=== PATIENT | female | born 1980 | race Caucasian/White ===

== ENCOUNTER 2018-06-01 06:42 | Inpatient (IN) | payer BC, SELFPAY ==
--- NOTE | 2018-06-01 05:27 | W.PM.HP.N ---
Date of service: 06/01/18 Time of Service: 05:27 Assessment and Plan (1) Previous delivery affecting : Current visit: No Status: Acute (2) Active labor at term: Current visit: Yes Status: Acute History of Present Illness Chief Complaint: Active labor at 40-2/7 weeks estimated gestational age, arrest of dilation Narrative: The patient is a 37-year old female with an estimated date of delivery of 05/30/2018 by a last menstrual period of 08/22/2017 confirmed by a 12-week OB ultrasound on 11/18/2017 who presents to the center at the request of her licensed patrol community service officer. Per report patient began experiencing contractions 0600 05/31/2017. She labored at home under the supervision of the Vasu Contreras CPM with gradual cervical changes and maximum cervical dilatation of 7 cm at 2100 hrs. Since that time she has continued with regular contractions reassuring heart rate by Doptone but no appreciable cervical change. Contractions have been strong per patient report and moderate to strong by palpation. The plan was to have her admitted to [facility] for IV fluids and further assessment. course First visit at 13.3 weeks on 11/23/2017 first trimester blood pressure 108/50 third trimester blood pressure 128/68 she had a total of 11 visits size but has been equal to dates patient's prepregnancy weight was 135 pounds. She is currently 178 pounds she was 151 pounds at her 13-week visit. She has gained approximately 27 pounds. Patient has been steadfast in her plans for a vaginal and strongly desired a vaginal at home. She visited [facility] during her and was shown the facility. She has been counseled regarding the risk of a vaginal after including the risk of uterine rupture with possible catastrophic consequences Labs A positive, antibody negative HIV, hepatitis B, RPR negative. Patient declined group B strep testing Imaging she had a normal second trimester morphology ultrasound on 12/30/2017 which confirmed her EDC by LMP OB history February 2016 she presented to [facility] at 42 weeks estimated gestational age with rupture of membranes not in active labor. She was in augmentation of labor with a maximum cervical dilatation of 5 cm. The delivery was for lack of progress. No complications in the . Past medical history is unremarkable Past surgical history: Allergies: None Medications: vitamins PE: Patient arrived at [facility] walking accompanied by her Thanh and Ms. Contreras. Heart regular rate and rhythm lungs clear to auscultation bilaterally abdomen is gravid contractions palpate strong contractions every 5-6 minutes heart rate category 1. No evidence of decelerations with contractions. Extremities 1+ pretibial nonpitting edema no clonus DTRs 2+ pelvic exam was deferred until after patient has had IV placed. Assessment: Patient is 37-year-old female currently at 40+ weeks estimated gestational age who desires with arrest of dilatation. She is tolerating contractions well. I approach the patient and her upon arrival suggesting that she had an arrest of dilatation patient and verbally indicated that she does not want a . The plan at this time is to provide IV hydration I will perform a cervical exam to assess there is pelvis. Type and screen CBC have been obtained. Review of Systems Review of Systems All systems reviewed & are unremarkable except as noted in HPI and below PFSH Medical History Previous delivery affecting (Acute) Family History Mother Hypertension Father Hypertension Social History household members: spouse and children marital status: M-Imtiaz number of children: 1 Smoking/Tobacco Use Status: Current every day Meds Allergies Allergy/AdvReac Type Severity Reaction Status Date / Time No Known Allergies Allergy Unverified 06/01/18 04:24 Exam Const General: cooperative and other Chest Breast inspection: normal inspection of the breasts Resp Effort & Inspection: normal respiratory effort Auscultation: clear to auscultation bilaterally Cardio Rate: regular rate Rhythm: regular rhythm Other: Sterile vaginal exam deferred until IV in place. heart rate category 1 no decelerations noted contractions every 5-6 minutes Skin General skin exam: no rashes or lesions noted Neuro General: deep tendon reflexes 2+ bilaterally Extrem General: normal to inspection and edema (1+ bilateral pretibial edema) Results Labs : 06/01/18 04:08
[2018-06-01 05:43] LABS: HCT 35.2 % (36.0-46.0); HGB 11.6 g/dL (12.0-15.5); Mean Corpuscular Hemoglobin 23.6 pg (27.0-33.0); Mean Corpuscular Volume 71.5 fL (80-95); Mean Platelet Volume 10.6 fL (8.0-11.0); Platelet Count 277 x1000/uL (130-400); RBC 4.92 m/cumm (4.00-5.20); RBC Distribution Width 20.1 % (11.7-14.6); White Blood Cell Count 22.32 k/cumm (4.4-10.8)
--- NOTE | 2018-06-01 05:43 | HPE_ITS ---
Date of service: 06/01/18 Time of Service: 05:27 Assessment and Plan (1) Previous delivery affecting : Current visit: No Status: Acute (2) Active labor at term: Current visit: Yes Status: Acute History of Present Illness Chief Complaint: Active labor at 40-2/7 weeks estimated gestational age, arrest of dilation Narrative: The patient is a 37-year old female with an estimated date of delivery of 05/30/2018 by a last menstrual period of 08/22/2017 confirmed by a 12-week OB ultrasound on 11/18/2017 who presents to the center at the request of her licensed apartment community manager. Per report patient began experiencing contractions 0600 05/31/2017. She labored at home under the supervision of the Vasu Contreras CPM with gradual cervical changes and maximum cervical dilatation of 7 cm at 2100 hrs. Since that time she has continued with regular contractions reassuring heart rate by Doptone but no appreciable cervical change. Contractions have been strong per patient report and moderate to strong by palpation. The plan was to have her admitted to [facility] for IV fluids and further assessment. course First visit at 13.3 weeks on 11/23/2017 first trimester blood pressure 108/50 third trimester blood pressure 128/68 she had a total of 11 visits size but has been equal to dates patient's prepregnancy weight was 135 pounds. She is currently 178 pounds she was 151 pounds at her 13-week visit. She has gained approximately 27 pounds. Patient has been steadfast in her plans for a vaginal and strongly desired a vaginal at home. She visited [facility] during her and was shown the facility. She has been counseled regarding the risk of a vaginal after including the risk of uterine rupture with possible catastrophic consequences Labs A positive, antibody negative HIV, hepatitis B, RPR negative. Patient declined group B strep testing Imaging she had a normal second trimester morphology ultrasound on 12/30/2017 which confirmed her EDC by LMP OB history February 2016 she presented to [facility] at 42 weeks estimated gestational age with rupture of membranes not in active labor. She was in augmentation of labor with a maximum cervical dilatation of 5 cm. The delivery was for lack of progress. No complications in the . Past medical history is unremarkable Past surgical history: Allergies: None Medications: vitamins PE: Patient arrived at [facility] walking accompanied by her Thanh and Ms. Contreras. Heart regular rate and rhythm lungs clear to auscultation bilaterally abdomen is gravid contractions palpate strong contractions every 5-6 minutes heart rate category 1. No evidence of decelerations with contractions. Extremities 1+ pretibial nonpitting edema no clonus DTRs 2+ pelvic exam was deferred until after patient has had IV placed. Assessment: Patient is 37-year-old female currently at 40+ weeks estimated gestational age who desires with arrest of dilatation. She is tolerating contractions well. I approach the patient and her upon arrival suggesting that she had an arrest of dilatation patient and verbally indicated that she does not want a . The plan at this time is to provide IV hydration I will perform a cervical exam to assess there is pelvis. Type and screen CBC have been obtained. Review of Systems Review of Systems All systems reviewed & are unremarkable except as noted in HPI and below PFSH Medical History Previous delivery affecting (Acute) Family History Mother Hypertension Father Hypertension Social History household members: spouse and children marital status: M-Imtiaz number of children: 1 Smoking/Tobacco Use Status: Current every day Meds Allergies Allergy/AdvReac Type Severity Reaction Status Date / Time No Known Allergies Allergy Unverified 06/01/18 04:24 Exam Const General: cooperative and other Chest Breast inspection: normal inspection of the breasts Resp Effort & Inspection: normal respiratory effort Auscultation: clear to auscultation bilaterally Cardio Rate: regular rate Rhythm: regular rhythm Other: Sterile vaginal exam deferred until IV in place. heart rate category 1 no decelerations noted contractions every 5-6 minutes Skin General skin exam: no rashes or lesions noted Neuro General: deep tendon reflexes 2+ bilaterally Extrem General: normal to inspection and edema (1+ bilateral pretibial edema) Results Labs : 06/01/18 04:08
[2018-06-01] MEDS: Sodium Citrate 30 ML CUP (06:53)
[2018-06-01] MEDS: AZITHROMYCIN 500 MG in Normal Saline 250 ML 250 MG IVPB (06:58)
[2018-06-01] MEDS: Lactated Ringers 1,000 ML 200 ML IV (07:19)
[2018-06-01] MEDS: Lactated Ringers 1,000 ML 150 ML IV (11:21)
[2018-06-01] MEDS: Ibuprofen 600 MG TAB PO (14:38)
--- NOTE | 2018-06-01 19:01 | W.PM.OP ---
Date of service: 06/01/18 Time of Service: 19:02 Operative Note DATE OF PROCEDURE: 06/01/18 PRE-OP DIAGNOSIS: IUP at 40.2 W EGA, arrest of dilation, unsuccessful . POST-OP DIAGNOSIS: same PROCEDURE: Urgent repeat low transverse delivery SURGEON: Anabel Canales SEWER AND DRAIN TECHNICIAN: Wade Lawson ANESTHESIA: spinal ESTIMATED BLOOD LOSS: 600 PATHOLOGY: none sent COMPLICATIONS: None Patient was transported to: floor Patient's condition: stable Indications: 37-year-old female at 40.2 weeks EGA who has been cared for during her course by Vasu Contreras [facility]. Patient had a primary low transverse delivery approximately 2 years ago for failure to dilate at term after spontaneous rupture of membranes. She desired a vaginal at home and had spontaneous contractions beginning on the morning of 05/31/2017 with cervical dilation to 7 cm at 2100 on 05/31/2017. However despite adequate contractions the patient had no further cervical change. She had ruptured membranes with clear amniotic fluid at midnight and was advised by Ms. Zhang to proceed to [facility] center for further intervention. On arrival she had clear amniotic fluid. I confirmed the lack of cervical dilatation and counseled the patient and her that a vaginal was unlikely and recommended a delivery. During the time from her arrival onto the center to the decision to proceed with delivery heart rate had changed from category 1 to category 2 with variable decelerations of the heart rate. Findings: A viable male who will be called [facility] in the vertex presentation with thick meconium stained amniotic fluid. Apgars 5 at 1 minute and 9 at 5 minutes. weight 3195 g (7 LBS 1oz). Meconium stained amnion, three-vessel cord, normal placental configuration. Ovary and fallopian tubes not visualized the uterus was never delivered out of the pelvis. Umbilical cord arterial blood gas pH 7.01 base excess -11. Procedure Description: Patient was taken to the operating room where she was placed in a sitting position and spinal anesthesia was administered without difficulty. She was placed in the dorsal supine position with a leftward tilt her vagina was prepped with Betadine. She had received 500 mg of azithromycin IV and 2 g of Ancef IV in route to the operating room. Echols catheter was inserted to gravity drainage and she was prepped and draped in the usual sterile fashion. Once an adequate level of anesthesia was obtained a scalpel you used to incise the previous Pfannenstiel skin incision and the underlying subcutaneous tissue was dissected with Bovie electrocautery to the level of the rectus fascia the rectus fascia was nicked in the midline the incision was extended laterally and 2 jose clamps were applied to the superior aspect of the incision. Rectus fascia was then dissected off of the underlying rectus muscles using Bovie electrocautery and blunt technique a similar technique technique was performed on the inferior aspect of the fascial incision. The rectus muscles had a separation and a opening the peritoneum on the most cephalad portion of the rectus fascia. This allowed the peritoneum to be stretched and a bladder blade placed through the peritoneal incision. The bladder was retracted away from the operative field as the vesicle uterine peritoneum was incised and dissected off of the lower uterine segment. The bladder blade was then replaced to retract the bladder away from the operative field. A scalpel was used to incise the lower uterine segment in transverse fashion upon entry into the uterine cavity thick copious meconium stained amniotic fluid was encountered. A single gloved hand was placed through the uterine incision and the head was grasped and lifted out of the pelvis. Upon lifting the head from the pelvis the fetus immediately changed to vertex with spine anterior. The anterior iliac crests were grasped bilaterally buttocks and lower extremities were delivered and the Bracht maneuver was successfully used to deliver the fetus. The cord was doubly clamped and cut and the was handed off to waiting pediatric team arterial cord gas was obtained and sent to the laboratory placenta was then extracted using fundal massage and gentle cord traction. Attempts at obtaining a blood sample from the placenta at a later time of the case were unsuccessful. The uterus was cleared of all clots and debris's and the decision was made to not exteriorize the uterus. The uterine incision was re-approximated with a running lock suture of 0 Vicryl followed by a second imbricating suture of 0 Vicryl. Hemostasis was noted to be satisfactory. The paracolic gutters were cleared of all clots and debris's final inspection of the uterine incision was performed with hemostasis noted. The bladder flap inspected anterior abdominal wall inspected and both noted to be intact. The peritoneum was reapproximated with a running suture of 2-0 Vicryl followed by closure of the rectus fascia extending from the lateral margins and overlapping in the midline using 0 Vicryl in a continuous fashion. Subcutaneous tissue was reapproximated with a running suture of 2-0 Vicryl and the skin incision was reapproximated with 4-0 Vicryl and the skin sealed with skin glue. Uterus was massaged for any remaining clots and debris's patient was transferred to [facility] and transported to the center for recovery. All sponge lap and needle counts were correct x2.
--- NOTE | 2018-06-01 19:04 | ROE_ITS ---
Date of service: 06/01/18 Time of Service: 19:02 Operative Note DATE OF PROCEDURE: 06/01/18 PRE-OP DIAGNOSIS: IUP at 40.2 W EGA, arrest of dilation, unsuccessful . POST-OP DIAGNOSIS: same PROCEDURE: Urgent repeat low transverse delivery SURGEON: Anabel Canales GREETING CARD EDITOR: Wade Lawson ANESTHESIA: spinal ESTIMATED BLOOD LOSS: 600 PATHOLOGY: none sent COMPLICATIONS: None Patient was transported to: floor Patient's condition: stable Indications: 37-year-old female at 40.2 weeks EGA who has been cared for during her course by Vasu Contreras [facility]. Patient had a primary low transverse delivery approximately 2 years ago for failure to dilate at term after spontaneous rupture of membranes. She desired a vaginal at home and had spontaneous contractions beginning on the morning of 05/31/2017 with cervical dilation to 7 cm at 2100 on 05/31/2017. However despite adequate contractions the patient had no further cervical change. She had ruptured membranes with clear amniotic fluid at midnight and was advised by Ms. Zhang to proceed to [facility] center for further intervention. On arrival she had clear amniotic fluid. I confirmed the lack of cervical dilatation and counseled the patient and her that a vaginal was unlikely and recommended a delivery. During the time from her arrival onto the center to the decision to proceed with delivery heart rate had changed from category 1 to category 2 with variable decelerations of the heart rate. Findings: A viable male who will be called [facility] in the vertex presentation with thick meconium stained amniotic fluid. Apgars 5 at 1 minute and 9 at 5 minutes. weight 3195 g (7 LBS 1oz). Meconium stained amnion, three-vessel cord, normal placental configuration. Ovary and fallopian tubes not visualized the uterus was never delivered out of the pelvis. Umbilical cord arterial blood gas pH 7.01 base excess -11. Procedure Description: Patient was taken to the operating room where she was placed in a sitting position and spinal anesthesia was administered without difficulty. She was placed in the dorsal supine position with a leftward tilt her vagina was prepped with Betadine. She had received 500 mg of azithromycin IV and 2 g of Ancef IV in route to the operating room. Echols catheter was inserted to gravity drainage and she was prepped and draped in the usual sterile fashion. Once an adequate level of anesthesia was obtained a scalpel you used to incise the previous Pfannenstiel skin incision and the underlying subcutaneous tissue was dissected with Bovie electrocautery to the level of the rectus fascia the rectus fascia was nicked in the midline the incision was extended laterally and 2 jose clamps were applied to the superior aspect of the incision. Rectus fascia was then dissected off of the underlying rectus muscles using Bovie electrocautery and blunt technique a similar technique technique was performed on the inferior aspect of the fascial incision. The rectus muscles had a separation and a opening the peritoneum on the most cephalad portion of the rectus fascia. This allowed the peritoneum to be stretched and a bladder blade placed through the peritoneal incision. The bladder was retracted away from the operative field as the vesicle uterine peritoneum was incised and dissected off of the lower uterine segment. The bladder blade was then replaced to retract the bladder away from the operative field. A scalpel was used to incise the lower uterine segment in transverse fashion upon entry into the uterine cavity thick copious meconium stained amniotic fluid was encountered. A single gloved hand was placed through the uterine incision and the head was grasped and lifted out of the pelvis. Upon lifting the head from the pelvis the fetus immediately changed to vertex with spine anterior. The anterior iliac crests were grasped bilaterally buttocks and lower extremities were delivered and the Bracht maneuver was successfully used to deliver the fetus. The cord was doubly clamped and cut and the was handed off to waiting pediatric team arterial cord gas was obtained and sent to the laboratory placenta was then extracted using fundal massage and gentle cord traction. Attempts at obtaining a blood sample from the placenta at a later time of the case were unsuccessful. The uterus was cleared of all clots and debris's and the decision was made to not exteriorize the uterus. The uterine incision was re-approximated with a running lock suture of 0 Vicryl followed by a second imbricating suture of 0 Vicryl. Hemostasis was noted to be satisfactory. The paracolic gutters were cleared of all clots and debris's final inspection of the uterine incision was performed with hemostasis noted. The bladder flap inspected anterior abdominal wall inspected and both noted to be intact. The peritoneum was reapproximated with a running suture of 2-0 Vicryl followed by closure of the rectus fascia extending from the lateral margins and overlapping in the midline using 0 Vicryl in a continuous fashion. Subcutaneous tissue was reapproximated with a running suture of 2-0 Vicryl and the skin incision was reapproximated with 4-0 Vicryl and the skin sealed with skin glue. Uterus was massaged for any remaining clots and debris's patient was transferred to [facility] and transported to the center for recovery. All sponge lap and needle counts were correct x2.
[2018-06-02] MEDS: Ibuprofen 600 MG TAB PO ×4 (01:40→23:11)
[2018-06-02 08:06] LABS: HGB 9.9 g/dL (12.0-15.5); Mean Corp. HGB Concentration 31.9 g/dL (32.0-36.0); Mean Corpuscular Hemoglobin 23.3 pg (27.0-33.0); Mean Corpuscular Volume 73.1 fL (80-95); Mean Platelet Volume 10.1 fL (8.0-11.0); Platelet Count 222 x1000/uL (130-400); RBC 4.24 m/cumm (4.00-5.20); RBC Distribution Width 19.7 % (11.7-14.6); White Blood Cell Count 18.22 k/cumm (4.4-10.8)
[2018-06-02] MEDS: guaiFENesin/D-METHORPHAN HB 5 ML CUP 10 ML PO ×2 (16:42→20:21)
[2018-06-03] MEDS: guaiFENesin/D-METHORPHAN HB 5 ML CUP 10 ML PO ×2 (00:38→07:30)
[2018-06-03] MEDS: Ibuprofen 600 MG TAB PO (07:11)
--- NOTE | 2018-06-03 08:50 | W.PM.DS.N ---
Date of service: 06/03/18 Time of Service: 09:06 DS: Diagnosis Discharge Diagnosis (1) Previous delivery affecting : Status: Acute (2) Active labor at term: Status: Acute (3) Previous delivery affecting : Status: Acute (4) delivery delivered: Status: Acute (5) Desires (vaginal after ) trial: Status: Acute Discharge Plan Disposition Patient Disposition: HOME Condition: Good Discharge Details Reason For Visit: TERM Admit Date/Time: 06/01/18 06:42 Admit Provider: Anabel Canales Attending Provider: Anabel Canales Primary Care Provider: Joe Huang Hospital Course Hospital Course: Patient was admitted from home after a unsuccessful attempt. Maximum cervical dilatation 7 cm for approximately 10 hours. Findings at the time of delivery: Male infant weighing 7 pounds 1 ounce. Thick meconium stained fluid arterial pH 7.01 base excess -11 Apgars of 5/8. Patient was discharged home on postop day #2 successfully breast-feeding using nonsteroidal anti-inflammatories for pain relief. Vital signs stable afebrile mood satisfactory incisions clean dry and intact with skin glue Home Meds and New Rx's Prescriptions: No Action No Known Home Meds RF: 0 Discharge Instructions Instructions: Caring for Your Baby (DC), Your Baby (DC), Expression, Collection and Storage of Breast Milk (DC), How to Hold and Breastfeed Your Baby (DC), and Nipple Soreness (DC), and Breast Engorgement (DC), and Plugged Ducts (DC), How to Increase Your Milk Supply (DC), How to Tell if Your Baby is Getting Enough Breast Milk (DC), (DC) Additional Instructions: YOU MAY Shower and wash your hair at any time and tub baths with assistance. If you have an abdominal incision, you may also wash your incision with warm water and soap, dry well. You may also use peroxide to clean your incision. AFTER YOUR FIRST WEEK AT HOME You may do light housekeeping, leave the house, and ride in a car. You may drive a car yourself for short trips after (2) weeks. To help with your recovery, you should resume daily activities as soon as you feel able. You will probably be able to return to work 4-6 weeks after your surgery. AVOID Vigorous exercise or heavy lifting for (6) six weeks after your surgery. Please abstain from intercourse, douching, and using tampons for (4) four weeks or until your physician indicates that this is acceptable. YOU MAY HAVE Some vaginal bleeding and/or discharge for (2) two to (3) three weeks after your surgery. Use pads only. Please contact the office if you have any sudden, heavy vaginal bleeding. TO AVOID CONSTIPATION You may use over the counter products, for example; Metamucil, Fibercon, Colace, or Milk of Magnesia. Also, eat a well balanced, high fiber diet and drink plenty of liquids. You may also use a girdle or abdominal support, if you wish for comfort, but it is not required. CALL THE OFFICE If you have any signs of infection, such as; a temperature greater than 100.4F, general ill feelings, redness or discharge at the site of the incision, or foul smelling vaginal discharge. If you experience any new symptoms, such as; nausea, vomiting, abdominal swelling, or severe pain. As soon as you are able to, schedule a follow-up appointment for (4) four to (6) six weeks from surgery. Please make the appointments with the physician that performed your surgery. MEDICATIONS You may use ibuprofen 600 mg every (6) six hours for pain- Advil, Motrin IB, and Ibuprofen that you buy without a prescription are the same medicine as prescribed Motrin or Ibuprofen. The kind you buy without prescription are 200mg so you may take 3 of these at a time if you did not receive a prescription for Ibuprofen. Please call the office with any questions or concerns at [phone]. printed material provided to pt. Activity:: Activity as Tolerated Equipment/Supplies:: No Equipment Needed Diet:: As Tolerated Discharge Orders Discharge Orders: Discharge Order (Routine); Ordered 06/03/18 Ordered By: Anabel Canales DS: Data Vitals/I&O Vitals and I&O: Vital Signs Pain Level 1 06/03/18 07:11 [facility] Surgical History delivery delivered (Acute) Previous delivery affecting (Acute) Family History Mother Hypertension Father Hypertension Social History household members: spouse and children marital status: M-Imtiaz number of children: 2 current occupation: homemaker Smoking/Tobacco Use Status: Current every day additional social history: 2016 Lizzeth Flanagan (Regina) 05/22/18 Ayden Crump History History 2 Para 2 Hx # Term Pregnancies 2 Multiple births Hx # Pregnancies Ectopic pregnancies AB induced Hx Number of Living Children 2 AB spontaneous Past Pregnancies Del. Date GA/Weeks # Outcome Route Wgt Sex Labor Lgth Anesthesia Location Prov Complic 06/01/18 40 Successful 7 lb 1 oz Male 24hrs aoc Delivery Date: 06/01/18 On 06/03/18 @ 09:05 Anabel Canales Planned home . Unsuccessful trial of labor after . Spontaneous labor at home with arrest of dilatation at 7 cm. spontaneously reverted to breech after the head was lifted out of the maternal pelvis. Delivery position: Breech spine up
--- NOTE | 2018-06-03 09:14 | DSE_ITS ---
Date of service: 06/03/18 Time of Service: 09:06 DS: Diagnosis Discharge Diagnosis (1) Previous delivery affecting : Status: Acute (2) Active labor at term: Status: Acute (3) Previous delivery affecting : Status: Acute (4) delivery delivered: Status: Acute (5) Desires (vaginal after ) trial: Status: Acute Discharge Plan Disposition Patient Disposition: HOME Condition: Good Discharge Details Reason For Visit: TERM Admit Date/Time: 06/01/18 06:42 Admit Provider: Anabel Canales Attending Provider: Anabel Canales Primary Care Provider: Joe Huang Hospital Course Hospital Course: Patient was admitted from home after a unsuccessful attempt. Maximum cervical dilatation 7 cm for approximately 10 hours. Findings at the time of delivery: Male infant weighing 7 pounds 1 ounce. Thick meconium stained fluid arterial pH 7.01 base excess -11 Apgars of 5/8. Patient was discharged home on postop day #2 successfully breast-feeding using nonsteroidal anti-inflammatories for pain relief. Vital signs stable afebrile mood satisfactory incisions clean dry and intact with skin glue Home Meds and New Rx's Prescriptions: No Action No Known Home Meds RF: 0 Discharge Instructions Instructions: Caring for Your Baby (DC), Your Baby (DC), Expression, Collection and Storage of Breast Milk (DC), How to Hold and Breastfeed Your Baby (DC), and Nipple Soreness (DC), and Breast Engorgement (DC), and Plugged Ducts (DC), How to Increase Your Milk Supply (DC), How to Tell if Your Baby is Getting Enough Breast Milk (DC), (DC) Additional Instructions: YOU MAY * Shower and wash your hair at any time and tub baths with assistance. * If you have an abdominal incision, you may also wash your incision with warm water and soap, dry well. You may also use peroxide to clean your incision. AFTER YOUR FIRST WEEK AT HOME * You may do light housekeeping, leave the house, and ride in a car. * You may drive a car yourself for short trips after (2) weeks. * To help with your recovery, you should resume daily activities as soon as you feel able. * You will probably be able to return to work 4-6 weeks after your surgery. AVOID * Vigorous exercise or heavy lifting for (6) six weeks after your surgery. * Please abstain from intercourse, douching, and using tampons for (4) four weeks or until your physician indicates that this is acceptable. YOU MAY HAVE * Some vaginal bleeding and/or discharge for (2) two to (3) three weeks after your surgery. * Use pads only. * Please contact the office if you have any sudden, heavy vaginal bleeding. TO AVOID CONSTIPATION * You may use over the counter products, for example; Metamucil, Fibercon, Colace, or Milk of Magnesia. * Also, eat a well balanced, high fiber diet and drink plenty of liquids. * You may also use a girdle or abdominal support, if you wish for comfort, but it is not required. CALL THE OFFICE * If you have any signs of infection, such as; a temperature greater than 100.4F, general ill feelings, redness or discharge at the site of the incision, or foul smelling vaginal discharge. * If you experience any new symptoms, such as; nausea, vomiting, abdominal swelling, or severe pain. * As soon as you are able to, schedule a follow-up appointment for (4) four to (6) six weeks from surgery. * Please make the appointments with the physician that performed your surgery. MEDICATIONS * You may use ibuprofen 600 mg every (6) six hours for pain- Advil, Motrin IB, and Ibuprofen that you buy without a prescription are the same medicine as prescribed Motrin or Ibuprofen. The kind you buy without prescription are 200mg so you may take 3 of these at a time if you did not receive a prescription for Ibuprofen. Please call the office with any questions or concerns at [phone]. printed material provided to pt. Activity:: Activity as Tolerated Equipment/Supplies:: No Equipment Needed Diet:: As Tolerated Discharge Orders Discharge Orders: Discharge Order (Routine); Ordered 06/03/18 Ordered By: Anabel Canales DS: Data Vitals/I&O Vitals and I&O: Vital Signs Pain Level 1 06/03/18 07:11 [facility] Surgical History delivery delivered (Acute) Previous delivery affecting (Acute) Family History Mother Hypertension Father Hypertension Social History household members: spouse and children marital status: M-Imtiaz number of children: 2 current occupation: homemaker Smoking/Tobacco Use Status: Current every day additional social history: 2016 Lizzeth Flanagan ([place]) 05/22/18 Ayden Crump History History 2 Para 2 Hx # Term Pregnancies 2 Multiple births Hx # Pregnancies Ectopic pregnancies AB induced Hx Number of Living Children 2 AB spontaneous Past Pregnancies Del. Date GA/Weeks # Outcome Route Wgt Sex Labor Lgth Anesthesia Location Prov Complic 06/01/18 40 Successful 7 lb 1 oz Male 24hrs aoc Delivery Date: 06/01/18 On 06/03/18 @ 09:05 Anabel Canales Planned home . Unsuccessful trial of labor after . Spontaneous labor at home with arrest of dilatation at 7 cm. Infant spontaneously reverted to breech after the head was lifted out of the maternal pelvis. Delivery position: Breech spine up
== END 2018-06-03 10:48 | disposition home or self-care (01) | DRG 788 ==
PROVIDERS: Admitting Provider Obstetrics & Gynecology Gynecology; PCP Nurse Practitioner Family; Visit Provider Obstetrics & Gynecology Gynecology
PROC: 10D00Z1 Extraction of Products of Conception, Low, Open Approach (ICD-10-PCS; CPT 59514; principal; 2018-06-01 06:15)
DX: O62.1 Secondary uterine inertia (principal); O76 Abnormality in fetal heart rate and rhythm complicating labor and delivery; Z37.0 Single live birth; O66.41 Failed attempted vaginal birth after previous cesarean delivery; O77.0 Labor and delivery complicated by meconium in amniotic fluid; O34.211 Maternal care for low transverse scar from previous cesarean delivery; O48.0 Post-term pregnancy; Z3A.40 40 weeks gestation of pregnancy; O99.334 Smoking (tobacco) complicating childbirth; F17.210 Nicotine dependence, cigarettes, uncomplicated
CPT/HCPCS: 59620; 36415; 85027; 86850; 86900; 86901; 99221; J0456; J0690; J1885; J2370; J2405; J3010

== ENCOUNTER 2019-06-27 15:30 | Outpatient (CLI) | payer BC, SELFPAY ==
--- NOTE | 2019-06-27 14:30 | DI.RAD_ITS ---
EXAM: XR KNEE LT 3V AP,LAT,AKOSUA CLINICAL HISTORY: left knee injury. TECHNIQUE: 2D digital imaging was performed. COMPARISON: No exams were available for comparison FINDINGS: BONES: No acute fracture is present. No bony destructive lesion is seen. JOINTS: The knee is normally aligned. No joint effusion is seen. SOFT TISSUE: Normal. IMPRESSION: Normal radiographs of the left knee.
== END 2019-06-27 15:50 ==
PROVIDERS: PCP Nurse Practitioner Family; Visit Provider Physician Assistant
DX: M25.562 Pain in left knee (principal); S89.92XA Unspecified injury of left lower leg, initial encounter; X58.XXXA Exposure to other specified factors, initial encounter
CPT/HCPCS: 73562

== ENCOUNTER 2019-07-13 02:56 | Outpatient (CLI) | payer BC, SELFPAY ==
--- NOTE | 2019-07-13 14:45 | DI.MRI_ITS ---
EXAM: MR LOWER JOINT LT WO CLINICAL HISTORY: left knee injury S83.412A SPRAOIN, M23.92 INTERNAL DERANGEMENT LT KNEE,. TECHNIQUE: Multiplanar multisequence MRI was performed. COMPARISON: XR KNEE LT 3V AP,LAT,AKOSUA from 06/27/2019 FINDINGS: The exam is somewhat limited by patient motion. The anterior cruciate ligament appears disrupted at the femoral attachment. The posterior cruciate l igament, lateral collateral ligament complex and extensor mechanism appear intact. There is edema around the medial collateral ligament and a full-thickness tear at the femoral attachm ent. Bone contusions are seen in the medial femoral condyle and posterior aspect of the tibia. Mildly increased signal is seen in the menisci without evidence of a discrete tear. A small joint effusion is seen. No cartilage defects are identified. IMPRESSION: Full-thickness tears of the anterior cruciate ligament and medial collateral ligament. Bone contusio ns. No definite meniscal tear. DATA REPOSITORY:
== END 2019-07-13 03:16 ==
PROVIDERS: PCP Nurse Practitioner Family; Visit Provider Student in an Organized Health Care Education/Training Program
DX: M25.562 Pain in left knee (principal); M23.92 Unspecified internal derangement of left knee; S83.412A Sprain of medial collateral ligament of left knee, initial encounter; S83.512A Sprain of anterior cruciate ligament of left knee, initial encounter
CPT/HCPCS: 73721

== ENCOUNTER 2022-02-11 14:44 | Outpatient (REF) | payer MEDICAID, SELFPAY ==
--- NOTE | 2022-02-11 14:15 | PAPFT_PTH ---
PATIENT: Roseanne Hernandez LOC: [facility] U#:[id number] AGE/SX: 41/F ROOM: RE02/11/[address]: Anabel Canales : 1980 BED: DIS: 02/11/2022 SPEC #: [id number] RECD: 02/11/22 17:31 STATUS: VERONA REBahman #: [id number] MANN: 02/11/22 14:[address]: Anabel Canales DEPT: [facility] [place] Cytology RECD BY: Natalie Hinton ENTERED: 02/11/22 17:32 SP TYPE: PAPFT OTHR DR: Joe Huang Tissues: 1 - CX/ENDOCX FOR PAP SMEARS Procedures: PAP THIN PREP/UVM Screening HPV DNA PROBE Comments: [id number]
== END 2022-02-11 14:45 | disposition home or self-care (01) ==
LOC: LBN 14:44
PROVIDERS: PCP Nurse Practitioner Family; Visit Provider Obstetrics & Gynecology Gynecology
DX: Z12.4 Encounter for screening for malignant neoplasm of cervix (principal); Z11.51 Encounter for screening for human papillomavirus (HPV)
CPT/HCPCS: 88142; 87624

== ENCOUNTER 2022-03-26 09:11 | Day surgery (SDC) | payer MEDICAID, SELFPAY ==
--- NOTE | 2022-03-25 15:07 | PDOC.DSDIS_ITS ---
Date of service: 03/26/22 Time of Service: 12:22 Discharge Plan Disposition Patient Disposition: HOME Condition: Good Discharge Details Attending Provider: Tiago Carbajal Primary Care Provider: Joe Huang Home Meds and New Rx's Prescriptions: New oxycodone 5 mg tablet 5 mg PO Q8H PRN (Reason: pain) Qty: 9 0RF Rx Instructions: take one tablet by moth every 8 hours as needed for severe pain Discharge Instructions Instructions: Skin Tags (GEN) Additional Instructions: 1. Resume all of your medications. 2. Okay to use tylenol and ibuprofen over the counter as needed. 3. Use oxycodone as needed for severe pain. 4. Obtain a sitz bath from any pharmacy. Soak for 10-15 minutes in warm water, warm water mixed with half a cup of baking soda, or Epson salts after each bowel movement, or up to 5 times per day as needed for pain. 5. Use over the counter psyllium (metamucil). Adjust dosing to daily soft bowel movements. 6. If you are able, leave bandage in place for 24 hours, then remove. 7. Shower with warm soapy water. Pat dry. Use a pad if needed to protect your clothing. 8.Call the office (or go directly to the emergency room after hours) if you notice any of the following: ? Develop chills (warm to touch), or if you have a thermometer ? and your temperature is above 101 ? Difficulty breathing or difficultly swallowing ? Persistent vomiting ? Any bleeding ? exceeding one tablespoon 9. Call your physician if the site where your intravenous was started becomes red, swollen, painful, and warm to touch. Referrals: Tiago Carbajal MD [ [facility] STAFF PHYSICIAN] - (10-14 days routine post op) Activity:: Activity as Tolerated Activity:: Activity as Tolerated Diet:: As Tolerated DS: Diagnosis Discharge Diagnosis (1) Skin tag of anus: Status: Acute Asessment and Plan: Follow up in my office 10-14 days for routine post-op visit
--- NOTE | 2022-03-26 05:15 | ANES.PREOP_ITS ---
General Info Date of Service Date Performed: 03/26/22 Height: 5 ft 5 in Weight: 64.52 kg Body Mass Index (BMI): 23.6 Surgical Procedure: Operation Date: 03/26/22 10:10 Proposed Procedure Side Surgeon p Hemorrhoidectomy Tiago Carbajal MD Meds Allergies and Home Medications Allergies Allergy/AdvReac Type Severity Reaction Status Date / Time cephalexin [From Keflex] AdvReac Intermediate Skin Rash Verified 03/26/22 09:37 sulfamethoxazole AdvReac Intermediate Skin Rash Verified 03/26/22 09:37 [From Bactrim] trimethoprim [From Bactrim] AdvReac Intermediate Skin Rash Verified 03/26/22 09:37 Home Medication Medication Instructions Recorded Unknown [No Known Home Meds] 02/11/22 Current Visit Medications: Current Medications Generic Name Dose Route Start Last Admin Trade Name Freq PRN Reason Stop Dose Admin Acetaminophen 1,000 mg 03/26/22 06:00 Acetaminophen 500 Mg Tab PO 03/26/22 23:59 PREOP ZOILA Celecoxib 200 mg 03/26/22 06:00 Celecoxib 200 Mg Cap PO 03/26/22 16:00 PREOP ZOILA Gabapentin 600 mg 03/26/22 06:00 Gabapentin 300 Mg Cap PO 03/26/22 23:59 PREOP ZOILA Ringer's Solution 1,000 mls @ 80 mls/hr 03/26/22 06:00 IV 03/26/22 23:59 INFUSION ZOILA Cefazolin Sodium/Dextrose 2 gm in 50 mls @ 100 mls/hr 03/26/22 06:00 Ancef Duplex IVPB 03/26/22 23:59 PREOP ZOILA IV Miscellaneous Supplies 1 each 03/26/22 06:00 Iv Access IV 03/26/22 23:59 DIRECTED ZOILA Sodium Chloride 0 ml 03/26/22 06:00 Normal Saline Flush 10 Ml Syr IV 03/26/22 23:59 PRN PRN Sodium Chloride 0 ml 03/26/22 06:00 Normal Saline 10 Ml Vial IJ 03/26/22 23:59 DIRECTED PRN Sterile Water 0 ml 03/26/22 06:00 Water,Injection,Sterile 10 Ml Vial IJ 03/26/22 23:59 DIRECTED PRN PFSH Active Problems Active Problems: Problem Status Onset Code Previous delivery affecting O34.219 Active labor at term delivery delivered O82 Desires (vaginal after ) trial O34.219 Z34.90 Tear of medial collateral ligament of left knee 04/07/19 S83.412A Injury of left anterior cruciate ligament 04/07/19 S89.92XA External hemorrhoid K64.4 Medical History Medical History (Updated 03/26/22 @ 09:36 by Martina Persaud, RN) Contraception Patient declines hormonal contraception. Uses withdrawal Hx of cardiac murmur Hx of thyroid nodule bx Surgical History Surgical History (Updated 03/26/22 @ 09:36 by Martina Persaud RN) H/O left knee surgery Previous delivery affecting 2015. Unsuccessful IOL at term. 05/22/18. Arrest of dilatation at 40.2w. Unsuccessful home . Repeat LTCS. Tobacco Smoking/Tobacco Use Status: Never Alcohol Alcohol Intake: current Alcohol intake frequency: holidays/special occasions only Substance Use Substance use: Never Substance use type: does not use Prental History History 2 Para 2 Hx # Term Pregnancies 2 Multiple births Hx # Pregnancies Ectopic pregnancies AB induced Hx Number of Living Children 2 AB spontaneous Past Pregnancies Del. Date GA/Weeks # Preg Succ Route Wgt Sex Labor Lgth Anesth esia Location Prov [facility] 06/01/18 40 3203.496 g Male 24hrs ao c Delivery Date: 06/01/18 Last Updated by: Anabel Canales M.D. Planned home . Unsuccessful trial of labor after . Spontaneous labor at home with arrest of dilatation at 7 cm. Infant spont aneously reverted to breech after the head was lifted out of the maternal pelvis. Delivery position: Breech spine up Vital Signs and Lab Results Lab Results Blood Type / Crossmatch: No Data to Display Complete Blood Count: No Data to Display Complete Metabolic Panel: No Data to Display Liver Function Panel: No Data to Display Coagulation Panel: No Data to Display Cardiac Panel: No Data to Display Arterial Blood Gas: No Data to Display Venous Blood Gas: No Data to Display Pancreas Panel: No Data to Display Thyroid Panel: No Data to Display Infectious Disease: No Data to Display Blood Cultures: No Data to Display Toxicology Panel: No Data to Display Panel: No Data to Display Anesthesia Assessment and Plan Anesthesia History Personal History: No History of Anesthesia Complications Family History: No Family History of Anesthesia Complications Exercise Tolerance Exercise Tolerance: Metabolic Equivalents>4 Cardiac & Pulmonary Exam Cardiac Exam: Normal S1/S2 Heart Sounds Pulmonary Exam: Clear Bilateral Breath Sounds Implantable Cardiac Device Does patient have a Pacemaker or an ICD?: No Airway Exam Known Difficult Airway: No Mallampati Class: 2 Mouth Opening: Normal (> 3cm) Thyromental Distance: Greater than 3 cm Neck Range of Motion: Full ROM Neck Circumference: Normal Teeth Condition: Normal Dentition ASA Classification ASA Score: ASA 2 Emergency Case?: No NPO Status NPO Status: NPO Clears >2 hours, Solids >8 hours Status Status: Negative HCG Anesthesia Plan Resuscitation Status: Full Code Anesthesia Technique: Spinal Anesthesia Airway Planned: Natural Airway Monitors Used: Standard Monitors Preoperative Comments:: 41 yo female for hemorrhoidectomy. Sig PMHx: never smoker, occ EtOH. Would like to be awake. Discussed saddle with heavy vs chloroprocaine. Will do saddle block with mac/GA backup.
[2022-03-26 09:23] VITALS: BP 134/67; PULSE 60; RESP 18; TEMP 36.3; O2SAT 100
--- NOTE | 2022-03-26 09:43 | W.PM.OP ---
Date of service: 03/26/22 Time of Service: 12:24 Operative Note Operative Note DATE OF PROCEDURE: 03/26/22 PRE-OP DIAGNOSIS: Anal skin tag POST-OP DIAGNOSIS: same PROCEDURE: Anorectal exam under anesthesia excision of anal skin tag ANESTHESIA TYPE: Local By Surgeon, MAC and Other (Saddle block) Refer to Anesthesia Record ESTIMATED BLOOD LOSS: 10 PATHOLOGY: none sent COMPLICATIONS: None Patient was transported to: same day Patient's condition: stable Indications: Roseanne is a 41-year-old woman who had peripartum hemorrhoids, and now suffers discomfort associated with anal skin tags Procedure Description: After establishing an appropriate saddle block, the patient was assisted into lithotomy positioning. The vagina, perineum, and anus were prepped and draped in usual fashion. Next, using local anesthetic, established perianal field block. I began with a digital anorectal exam. He felt normal. There were no masses. Next, using a series of rigid anoscope's and rectal speculums, I examined the anal canal. The anal verge was normal-appearing. There were no internal hemorrhoids. There were no fissures. Next, I completed external anorectal exam. In lithotomy position, there were 2 skin tags at the 6 o'clock position. Both were grasped with Allis clamps. Local anesthetic was used to elevate these. I then excised them with elliptical incisions using a 15 blade scalpel. The skin was closed with interrupted Vicryl stitches. Albert pad was applied, the patient was transferred back to the same-day surgery recovery unit.
[2022-03-26] MEDS: Acetaminophen 500 MG TAB 1000 MG PO (09:47)
[2022-03-26] MEDS: Gabapentin 300 MG CAP 600 MG PO (09:47)
[2022-03-26] MEDS: Celecoxib 200 MG CAP PO (09:48)
[2022-03-26] MEDS: Lactated Ringers 1,000 ML 80 ML IV (09:57)
[2022-03-26 11:05] VITALS: BMI 23.6
[2022-03-26] MEDS: ceFAZolin 2 GM/50 ML BAG IVPB (11:33)
[2022-03-26] MEDS: Bupivacaine 0.25% Pres-Free 30 ML VIAL (12:10)
[2022-03-26 12:20] VITALS: BP 141/69; PULSE 63; RESP 18; TEMP 36.3; O2SAT 100
--- NOTE | 2022-03-26 12:29 | W.ANESPOSTOP ---
Postoperative Evaluation Date, Time and Location Date Performed: 03/26/22 Time Performed: 12:29 Patient Location: Day Surgery Unit Vital Signs Most Recent Imported Vital Signs: Most Recent Vital Signs Temp Pulse Resp BP Pulse Ox 36.3 C L 63 18 141/69 H 100 03/26/22 12:20 03/26/22 12:20 03/26/22 12:20 03/26/22 12:20 03/26/22 12:20 Pain Score Most Recent Pain Score: Most Recent Pain Score Pain Level 0 03/26/22 12:20 Assessment Mental Status: Awake (Alert & Oriented to Patient Baseline) Airway and Respiratory Function: Patent airway with normal (patient baseline) respiratory exam Cardiovascular Function: Hemodynamically Stable Hydration Status: Adequately Hydrated Nausea & Vomiting: No Nausea or Vomiting Pain: Pt. Denies Any Pain Peripheral Nerve Block: Other (saddle block in place. has good leg strentgh. )
[2022-03-26 12:47] VITALS: BP 139/71; PULSE 54; RESP 18; TEMP 36.3; O2SAT 100
== END 2022-03-26 13:05 | disposition home or self-care (01) ==
PROVIDERS: PCP Nurse Practitioner Family; Visit Provider Surgery
PROC: (CPT 46230; principal; 2022-03-26 10:00)
DX: K64.4 Residual hemorrhoidal skin tags (principal)
CPT/HCPCS: 46230; 81025; J0690; J1100; J2250; J2405

== ENCOUNTER 2024-11-14 17:06 | Outpatient (CLI) | payer MEDICAID, SELFPAY ==
[2024-11-14 18:07] LABS: TSH (W/Ref FT4) 0.98 uIU/mL (0.36-3.74)
[2024-11-15 18:18] LABS: T3,Free 3.4 pg/mL (2.8-5.3)
[2024-11-15 18:31] LABS: T3, Total 115 ng/dL (97-169)
== END 2024-11-14 17:07 | disposition home or self-care (01) ==
LOC: LBO 17:10
PROVIDERS: PCP Nurse Practitioner Family; Visit Provider Obstetrics & Gynecology
DX: E04.1 Nontoxic single thyroid nodule (principal)
CPT/HCPCS: 36415; 86376; 84443; 84480; 84481

== ENCOUNTER 2024-11-21 01:56 | Outpatient (CLI) | payer MEDICAID, SELFPAY ==
--- NOTE | 2024-11-21 07:00 | DI.MAMMO_ITS ---
Exam(s) US BREAST LT COMPLETE US BREAST RT COMPLETE [facility]NO[facility] BI EXAM: [facility] BI and bilateral complete breast ultrasound CLINICAL HISTORY: rt and lt breast masses 1 o'clock right 3 o'lock left,n63.0,r92.30, dense. TECHNIQUE: Craniocaudal and mediolateral oblique Full Field Digital Mammography views with Computer Aided Diagnosis followed by Tomosynthesis and bilateral complete breast ultrasound. Complete bilateral breast ultrasound were obtained. All 4 quadrants were evaluated sonographically in addition to the axilla and retroareolar regions. COMPARISON: This is a baseline examination. There are no priors for comparison. FINDINGS: Mammography/Tomosynthesis: Masses/Architectural Distortion: No suspicious masses or areas of architectural distortion are identified. Microcalcifictions: No suspicious pleomorphic-type are seen. Skin Thickening/Nipple Retraction: None. Complete bilateral breast US: Echotexture: Normal appearance of the glandular tissue. Shadowing: No suspicious foci. Cyst: In the right breast, there is a small cluster of cysts at the 9 o'clock position 3 cm from the nipple measuring 0.5 x 0.3 x 0.6 cm in aggregate. There are no suspicious cystic lesions in either breast. Solid lesions: At the 2 o'clock position of the left breast 7 cm from the nipple, there is a 0.7 x 0.3 x 0.7 cm well-circumscribed hypoechoic avascular nodule. This may represent a benign lesion such as a fibroadenoma or intraparenchymal lymph node. There are no suspicious solid masses seen in either breast. Ductal dilation: None. IMPRESSION: 1. No definite evidence of malignancy is noted. 2. 0.7 cm well-circumscribed hypoechoic nodule in the left breast. This may represent a benign lesion such as a fibroadenoma. 3. A six-month follow-up left breast ultrasound is recommended for re- evaluation. 4. The findings were discussed with the patient on the date of the examination. BI-RADS Category 3 - 6 month - Probably Benign Finding: Recommend follow-up imaging in 6 months Breast Density - Category C - The breast are heterogeneously dense, which may obscure small masses. Breast density Category C or D implies that the patient has dense breast tissue. Dense breast tissue can make it harder to find cancer on a mammogram. Dense breast tissue is also associated with an increased risk of breast cancer. This information about the result of the mammogram report was provided to the patient to raise their awareness. Use this report when you speak with the patient about their risks for breast cancer, which includes their family history. At that time, you may recommend additional screening tests (Ultrasound or MRI) as these tests may add significant information. A negative radiographic report should not delay biopsy if a dominant or clinically suspicious mass is present. Up to ten percent of cancers are not identified on mammography. A negative report may reinforce clinical impression. Adenosis and dense breasts may obscure an underlying neoplasm. False positive reports average 6 to 10%. Patient will receive a letter notifying them of these results.
== END 2024-11-21 02:16 ==
LOC: DI 01:56
PROVIDERS: PCP Nurse Practitioner Family; Visit Provider Obstetrics & Gynecology
DX: Z12.31 Encounter for screening mammogram for malignant neoplasm of breast (principal); R92.323 Mammographic fibroglandular density, bilateral breasts
CPT/HCPCS: 76642; 77062; 77066; G0279